=== PATIENT | female | born 1975 | race Caucasian/White ===

== ENCOUNTER → 2020-07-17 06:57 | Outpatient (CLI) | payer OTHER, SELFPAY ==
[2020-07-17 20:44] LABS: SARS-CoV-2 RNA PCR Negative
== END ==
PROVIDERS: PCP Otolaryngology; Visit Provider Family Medicine
DX: R68.89 Other general symptoms and signs (principal); Z20.822 Contact with and (suspected) exposure to COVID-19
CPT/HCPCS: C9803; U0003; U0005

== ENCOUNTER 2021-08-11 17:18 | Outpatient (CLI) | payer OTHER, MEDICAID, SELFPAY ==
--- NOTE | ~2021-08-11 | XR_ITS ---
EXAMINATION: XR thoracic spine 2V DATE: 08/11/2021 17:52 INDICATION: Back pain TECHNIQUE: AP and lateral views of the thoracic spine were obtained. COMPARISON: None. FINDINGS: Bone alignment is normal. There is no fracture. There is mild disc space narrowing in the l ower thoracic spine. Small degenerative osteophytes project from the anterior endplates of multiple v ertebral bodies. The vertebral body heights are maintained. IMPRESSION: 1. Mild thoracic spondylosis without acute findings. Reviewed, dictated and finalized at location A.
--- NOTE | ~2021-08-11 | XR_ITS ---
EXAMINATION: XR lumbar spine min 4V DATE: 08/11/2021 17:52 INDICATION: Low back pain TECHNIQUE: Anteroposterior, lateral, and bilateral oblique views of the lumbar spine, and cone-down l ateral view of the lumbosacral junction were obtained. COMPARISON: MRI, 10/02/2011 FINDINGS: There is no fracture, dislocation, or subluxation. The lumbar vertebral body heights and al ignment are normal. There is mild disc space narrowing of the lower thoracic spine. The vertebral bod y heights are maintained. Small degenerative osteophytes project from the anterior endplates of multi ple vertebral bodies. There is mild facet osteoarthritis of the lower lumbar spine. IMPRESSION: 1. Mild lumbar spondylosis without acute findings or significant interval change. Reviewed, dictated and finalized at location A. IMPRESSION: 1. Mild lumbar spondylosis without acute findings or significant interval nely marion
== END 2021-08-11 17:19 | disposition home or self-care (01) ==
PROVIDERS: PCP Physician Assistant; Visit Provider Physician Assistant
DX: M47.894 Other spondylosis, thoracic region (principal); M47.896 Other spondylosis, lumbar region
CPT/HCPCS: 72070; 72110

== ENCOUNTER 2021-10-03 07:53 | Outpatient (CLI) | payer OTHER, MEDICAID, SELFPAY ==
--- NOTE | 2021-10-03 | EST_ITS ---
Patient Info Name: Magda Argueta Age: 46 years : 1975 Gender: Female Ht: 68 in Wt: 248 lbs BSA: 2.37 m2 HR: 76 bpm BP: 118 / 66 mmHg Heart Rhythm: Sinus Rhythm Exam Date: 10/03/2021 8:46 AM Exam Location: [facility] Patient Status: Outpatient Admit Date: 10/03/2021 Staff Ordering Physician: Franklin, Jennyfer VALENTE Attending Provider: Franklin, Jennyfer VALENTE Exercise Technologist: Melany Tijerina CT Nurse: TRESA HEREDIA Exam Type: CA stress test treadmill Study Info Indications R06.02 - Shortness of breath R07.9 - Chest pain, unspecified A treadmill exercise stress test was performed. Summary 1. Normal sinus rhythm - normal ECG. 2. No abnormal ST/T wave changes with exercise. 3. Graded exercise test negative for ischemia at 74% of age predicted maximum heart rate. 4. Low peak heart rate achieved does reduce diagnostic sensitivity. Protocol: [facility] ECG Details Stage: REST Duration (min): 0 min : 57 sec Speed (mph): 0.0 Grade (%): 0 HR (bpm): 77 SBP (mmHg): 118 DBP (mmHg): 66 METS: --- Stage: REST Duration (min): 10 min : 4 sec Speed (mph): 0.0 Grade (%): 0 HR (bpm): 84 SBP (mmHg): 118 DBP (mmHg): 66 METS: --- Stage: STAGE 1 Duration (min): 1 min : 0 sec Speed (mph): 1.7 Grade (%): 10 HR (bpm): 101 SBP (mmHg): 118 DBP (mmHg): 66 METS: --- Stage: STAGE 1 Duration (min): 2 min : 0 sec Speed (mph): 1.7 Grade (%): 10 HR (bpm): 113 SBP (mmHg): 118 DBP (mmHg): 66 METS: --- Stage: STAGE 1 Duration (min): 3 min : 0 sec Speed (mph): 1.7 Grade (%): 10 HR (bpm): 119 SBP (mmHg): 118 DBP (mmHg): 66 METS: --- Stage: STAGE 2 Duration (min): 1 min : 0 sec Speed (mph): 2.5 Grade (%): 12 HR (bpm): 124 SBP (mmHg): 156 DBP (mmHg): 64 METS: --- Stage: STAGE 2 Duration (min): 2 min : 0 sec Speed (mph): 2.5 Grade (%): 12 HR (bpm): 129 SBP (mmHg): 156 DBP (mmHg): 64 METS: --- Stage: STAGE 2 Duration (min): 2 min : 2 sec Speed (mph): 2.5 Grade (%): 12 HR (bpm): 130 SBP (mmHg): 156 DBP (mmHg): 64 METS: --- Stage: RECOVERY Duration (min): 0 min : 57 sec Speed (mph): 0.0 Grade (%): 0 HR (bpm): 123 SBP (mmHg): 119 DBP (mmHg): 82 METS: --- Stage: RECOVERY Duration (min): 1 min : 57 sec Speed (mph): 0.0 Grade (%): 0 HR (bpm): 110 SBP (mmHg): 160 DBP (mmHg): 69 METS: --- Stage: RECOVERY Duration (min): 2 min : 57 sec Speed (mph): 0.0 Grade (%): 0 HR (bpm): 102 SBP (mmHg): 150 DBP (mmHg): 69 METS: --- Stage: RECOVERY Duration (min): 3 min : 57 sec Speed (mph): 0.0 Grade (%): 0 HR (bpm): 98 SBP (mmHg): 150 DBP (mmHg): 69 METS: --- Stage: RECOVERY Duration (min): 4 min : 51 sec
--- NOTE | 2021-10-03 | ECHO_ITS ---
Patient Info Name: Magda Argueta Age: 46 years : 1975 Gender: Female Ht: 68 in Wt: 248 lbs BSA: 2.37 m2 HR: 83 bpm BP: 113 / 80 mmHg Heart Rhythm: Sinus Rhythm Technical Quality: Fair Exam Date: 10/03/2021 8:25 AM Exam Location: [facility] Patient Status: Outpatient Admit Date: 10/03/2021 Staff Ordering Physician: FranklinJennyfer Middleware Engineer: Sommer Allred RDCS Attending Provider: Franklin, Jennyfer VALENTE Referring Physician: Franklin TORRES; Exam Type: CA echo doppler color flow Study Info Indications R06.09 - Other forms of dyspnea Complete two-dimensional, color flow and Doppler transthoracic echocardiogram is performed. Summary 1. Complete two-dimensional, color flow and Doppler transthoracic echocardiogram is performed. 2. Unremarkable echocardiogram. Left Ventricle Left ventricular chamber dimension is normal. Left ventricular systolic function is normal, estimated at 60-65%. The left ventricular diastolic function is normal. Right Ventricle Right ventricular chamber dimension is normal. Left Atria Left atrial chamber dimension is normal. Right Atria Right atrial chamber dimension is normal. Aortic Valve The aortic valve is normal. Pulmonic Valve The pulmonic valve is normal. Mitral Valve The mitral valve has normal leaflets. Tricuspid Valve The tricuspid valve leaflets are normal. Pericardium/Pleural The pericardium appears normal. Aorta The aortic root size at the sinus of Valsalva is normal. Left Ventricular Outflow Tract Name Value Normal LVOT 2D LVOT Diameter 2.0 cm LVOT Doppler LVOT Peak Gradient 5 mmHg LVOT Mean Gradient 3 mmHg LVOT VTI 24 cm LVOT VTI/AV VTI Ratio 0.9 LVOT Stroke Volume 79 ml LVOT CO 6.6 l/min LVOT CI 2.8 l/min/m2 Pulmonic Valve Name Value Normal RVOT Doppler RVOT Peak Gradient 2 mmHg PV Doppler PV Peak Gradient 4 mmHg Mitral Valve Name Value Normal MV Doppler MV Decel Wood 640 cm/s2 MV PHT 40 ms MV Area (PHT) 5.5 cm2 4.0-5.0 MV Diastolic Function MV E Peak Velocity 88 cm/s MV A Pe
--- NOTE | 2021-10-03 13:39 | WPDPFTINT ---
PFT Procedure Performed PFT Procedure Performed Spirometry with Pre/Post Bronchodilator Plethysmography (Lung Vol) Diffusing Cap (DLCO) Flow Vol Loop PFT Interpretation Lung volumes were measured with the body plethysmography method. The diminished expiratory reserve volume is related to obesity. The remainder lung volumes are unremarkable. Spirometry showed diminished FEV1 and a diminished FEV1 to FVC ratio of 69%, indicative of mild obstructive airway disease. Following administration of a bronchodilator there was significant increase in the expiratory flow rates. Lung diffusion capacity is borderline normal at 73% predicted. The flow volume loop is consistent with obstructive airway disease. Impression: Mild obstructive airway disease with significant response to bronchodilators on this testing. Borderline normal lung diffusion capacity.
--- NOTE | 2021-10-06 12:21 | WPDHOLTEREM ---
Holter/Event Monitor Holter/Event Monitor Date of procedure: 10/06/21 Holter/Event Procedure: 48 Hr Holter Monitor Diagnosis: Palpitations Indications: Palpitation Image/Tracing Quality: Good quality Finding: The basic cardiac rhythm is sinus with normal TX QRS and QT intervals. The heart rate varies from a minimum of 70 to a maximum of 121. The average heart rate was 86. There were no abrupt pauses are examples of abnormal AV conduction identified. Supraventricular ectopic activity was infrequent consisting of PACs occurring at a frequency of just over 1 complex per hour. These were all single complexes there were no runs of SVT. There were no examples of atrial fibrillation. During this exam no ventricular ectopic activity of any kind occurred It appears that there were no symptoms experienced during this exam Conclusion: 1. Essentially unremarkable 48 hour Holter monitor Roberto Carlos Rhoades MD [facility]
== END 2021-10-03 07:54 | disposition home or self-care (01) ==
LOC: ANHCARD 07:54
PROVIDERS: PCP Physician Assistant; Visit Provider Physician Assistant
DX: R06.09 Other forms of dyspnea (principal); I20.9 Angina pectoris, unspecified; R00.2 Palpitations; M54.2 Cervicalgia; R94.2 Abnormal results of pulmonary function studies
CPT/HCPCS: 93017; 93225; 93226; 93306; 94060; 94726; 94729

== ENCOUNTER 2022-01-16 14:02 | Outpatient (CLI) | payer OTHER, MEDICAID, SELFPAY ==
--- NOTE | ~2022-01-16 | XR_ITS ---
XR shoulder RT min 2V 01/16/2022 14:27 INDICATION: Right shoulder pain PROCEDURE: 4 views right shoulder COMPARISON: No prior studies for comparison. FINDINGS: Fracture, dislocation or subluxation is not identified. There is a calcified granuloma in t he right upper lung. The soft tissues appear within normal limits. No foreign bodies are identified. IMPRESSION: 1: NO ACUTE BONE OR JOINT ABNORMALITY IDENTIFIED. Reviewed, dictated and finalized at location A.
== END 2022-01-16 14:03 | disposition home or self-care (01) ==
PROVIDERS: PCP Physician Assistant; Visit Provider Physician Assistant
DX: M25.511 Pain in right shoulder (principal)
CPT/HCPCS: 73030

== ENCOUNTER 2022-05-25 12:34 | Outpatient (CLI) | payer OTHER, MEDICAID, SELFPAY ==
--- NOTE | ~2022-05-25 | MR_ITS ---
MRI of the right shoulder Technique: Axial proton-density fat-sat images, coronal proton density fat-sat and T2 fat-sat images, and sagittal T1-weighted and T2 fat-sat images were acquired. Clinical History: Pain Findings: No significant degenerative change at the AC joint. Coracoclavicular, coracoacromial, and c oracohumeral ligament are intact. Supraspinatus and infraspinatus tendons are intact, without partial or full-thickness tear. Subscapul mere tendon is intact. Tendon of the long head of the biceps is intact. Glenoid labrum is intact, without evidence of tear. No degenerative change or effusion of the glenohumeral joint. Inferior glenohumeral ligament is intac t. No fluid distention of the subacromial/subdeltoid bursa. No muscle atrophy or edema. Impression: Unremarkable exam. Reviewed, dictated and finalized at [facility]. [employer] Impression: Unremarkable exam.
== END 2022-05-25 12:35 | disposition home or self-care (01) ==
PROVIDERS: PCP Physician Assistant; Visit Provider Orthopaedic Surgery
DX: M25.611 Stiffness of right shoulder, not elsewhere classified (principal); M25.511 Pain in right shoulder
CPT/HCPCS: 73221